=== PATIENT | female | born 1940 | race Asian ===

== ENCOUNTER 2016-10-13 12:19 | Emergency (ER) | payer OTHER ==
[~2016-10-13] VITALS: Ht 152.4 cm; Wt 52.2 kg
[2016-10-13] MEDS ORDERED: SODIUM CHLORIDE 0.9% 1,000 ML IV ONE (12:23)
[2016-10-13 13:06] LABS: Basophils # (auto) 0 uL; Basophils % (auto) 0.6 % (0.0-2.0); CONDITION Y; Eosinophils # (auto) 0.2 uL; Hematocrit 42.7 % (36.0-46.0); Hemoglobin 14.6 g/dL (12.2-16.2); Lymphocytes # (auto) 1.5 uL; Lymphocytes % (auto) 25.7 % (10.0-50.0); Mean Corpuscular Hemoglobin 30.6 pg (28.0-32.0); Mean Corpuscular Hgb Conc. 34.2 g/dL (32.0-36.0); Mean Corpuscular Volume 89.5 fL (80.0-100.0); Mean Platelet Volume 7.7 fL (7.4-10.4); Monocytes # (auto) 0.4 uL; Monocytes % (auto) 7.3 % (0.0-12.0); Neutrophils # (auto) 3.7 uL; Neutrophils % (auto) 62.4 % (37.0-80.0); Platelet Count (auto) 255 10^3/uL (140-450); Red Cell Distribution Width 12.9 % (11.6-16.0); White Blood Cell 5.9 10^3/uL (4.4-10.8)
[2016-10-13 13:29] LABS: B-Type Natriuretic Peptide 239.13 pg/mL (0-100); Temperature: 22.4 C (20.0-25.0)
[2016-10-13 13:37] LABS: INR 0.98 (0.9-1.15); Partial Thromboplastin Time 25.7 sec (22.64-33.71); Prothrombin Time 10.7 sec (9.37-12.3)
[2016-10-13 13:38] LABS: Albumin 3.3 g/dL (3.4-5.0); Alkaline Phosphatase 69 U/L (45-117); Anion Gap 10 (5-15); Aspartate Aminotransferase 19 U/L (15-37); Bilirubin, Total 0.5 mg/dL (0.2-1.0); Blood Urea Nitrogen 24 mg/dL (7-18); Calcium 8.7 mg/dL (8.5-10.1); Carbon Dioxide 25 mmol/L (21-32); Chloride 104 mmol/L (98-107); GFR African American 90 mL/min; GFR Non-African American 74 mL/min; Glucose 114 mg/dL (74-106); Sodium 139 mmol/L (136-145); Total Protein 7.8 g/dL (6.4-8.2)
[2016-10-13 14:23] LABS: Urine Bilirubin Negative (Negative); Urine Blood Negative /uL (Negative); Urine Color Yellow (Yellow); Urine Glucose Normal (Normal); Urine Ketone Negative (Negative); Urine RBC 2 /hpf (0 - 4); Urine Squamous Epithelial Cell FEW /hpf (<5); Urine Urobilinogen Normal (Negative); Urine pH 6.5 (5.0-8.0)
[2016-10-13 14:26] LABS: Urine Nitrite POSITIVE (Negative)
[2016-10-13] MEDS ORDERED: FUROSEMIDE 20 MG/2 ML VIAL IV ONE (14:30)
[2016-10-13] MEDS ORDERED: cefTRIAXone 1GM/50ML D5W 50 ML IV ONE (14:30)
[2016-10-13] MEDS ORDERED: cloNIDine HCL 0.1 MG TAB PO ONE (15:30)
[2016-10-13 16:40] VITALS: BP 118/70
== END 2016-10-13 16:41 | disposition home or self-care (01) ==
LOC: EDBD 12:19 → ER 12:24
DX: R55 Syncope and collapse (principal); E11.9 Type 2 diabetes mellitus without complications; R06.02 Shortness of breath
CPT/HCPCS: 36415; 70450; 71010; 80053; 81001; 83880; 84484; 85025; 85610; 85730; 96361; 96365; 96375; 99285; J0696; J1940; J7030

== ENCOUNTER 2017-04-01 23:00 | Emergency (ER) | payer OTHER ==
[~2017-04-01] VITALS: Ht 149.9 cm; Wt 52.2 kg
[2017-04-01] MEDS ORDERED: cloNIDine HCL 0.1 MG TAB ONE (23:06)
[2017-04-01] MEDS ORDERED: cloNIDine HCL 0.1 MG TAB PO ONE (23:30)
[2017-04-02 00:11] LABS: Basophils # (auto) 0.1 uL; Basophils % (auto) 1.3 % (0.0-2.0); Eosinophils # (auto) 0.2 uL; Eosinophils % (auto) 2.9 % (0.0-7.0); Hematocrit 41.9 % (36.0-46.0); Hemoglobin 14.1 g/dL (12.2-16.2); Lymphocytes # (auto) 1.3 uL; Lymphocytes % (auto) 23.1 % (10.0-50.0); Mean Corpuscular Hemoglobin 31.1 pg (28.0-32.0); Mean Corpuscular Hgb Conc. 33.6 g/dL (32.0-36.0); Mean Corpuscular Volume 92.4 fL (80.0-100.0); Monocytes # (auto) 0.5 uL; Monocytes % (auto) 9.7 % (0.0-12.0); Neutrophils # (auto) 3.4 uL; Nucleated Red Blood Cells % 0.1 %; Platelet Count (auto) 259 10^3/uL (140-450); Red Blood Cells 4.54 10^6/uL (4.0-5.20); Red Cell Distribution Width 13.3 % (11.8-14.3); White Blood Cell 5.5 10^3/uL (4.4-10.8)
[2017-04-02 00:25] LABS: Albumin 3.6 g/dL (3.4-5.0); Calcium 9.1 mg/dL (8.5-10.1); Potassium 3.8 mmol/L (3.5-5.1)
[2017-04-02 00:27] LABS: BUN/Creatinine Ratio 27.8
[2017-04-02 00:30] LABS: Bilirubin, Total 0.3 mg/dL (0.2-1.0); Total Protein 8.3 g/dL (6.4-8.2)
[2017-04-02] MEDS ORDERED: INDOMETHACIN 25 MG CAP PO ONE (07:15)
[2017-04-02 08:05] VITALS: BP 160/72
== END 2017-04-02 09:14 | disposition home or self-care (01) ==
LOC: ER 23:00
DX: M79.674 Pain in right toe(s) (principal); M25.50 Pain in unspecified joint; M10.9 Gout, unspecified; I10 Essential (primary) hypertension; E11.9 Type 2 diabetes mellitus without complications
CPT/HCPCS: 36415; 73660; 80053; 84550; 85025

== ENCOUNTER 2019-06-10 10:46 | Inpatient (IN) | payer OTHER ==
[~2019-06-10] VITALS: Ht 167.6 cm; Wt 52.6 kg
[2019-06-10] MEDS ORDERED: SODIUM CHLORIDE 0.9% 1,000 ML IV ONE (11:17)
[2019-06-10] MEDS ORDERED: ASPirin 81 mg TAB PO ONE ×2 (11:30→19:00)
[2019-06-10 11:42] LABS: Basophils # (auto) 0.1 10 ^3/uL (0-0.2); Basophils % (auto) 0.9 % (0.0-2.0); Eosinophils # (auto) 0.1 10 ^3/uL (0-0.8); Eosinophils % (auto) 1.9 % (0.0-7.0); Hematocrit 44.3 % (36.0-46.0); Lymphocytes # (auto) 1.1 10 ^3/uL (0.4-5.4); Lymphocytes % (auto) 18.4 % (10.0-50.0); Mean Corpuscular Hemoglobin 30.4 pg (28.0-32.0); Mean Corpuscular Hgb Conc. 33.9 g/dL (32.0-36.0); Mean Corpuscular Volume 89.6 fL (80.0-100.0); Monocytes # (auto) 0.4 10 ^3/uL (0-1.3); Monocytes % (auto) 7.4 % (0.0-12.0); Neutrophils # (auto) 4.2 10 ^3/uL (1.6-8.6); Neutrophils % (auto) 71.4 % (37.0-80.0); Platelet Count (auto) 197 10^3/uL (140-450); Red Blood Cells 4.94 10^6/uL (4.0-5.20); Red Cell Distribution Width 14.1 % (11.8-14.3); White Blood Cell 5.8 10^3/uL (4.4-10.8)
[2019-06-10 11:45] LABS: Urine Bacteria MOD /hpf (None Seen); Urine Blood Negative /uL (Negative); Urine Specific Gravity 1.006 (1.001-1.035); Urine WBC 132 /hpf (0 - 5)
[2019-06-10 11:58] LABS: INR 1.03 (0.9-1.15); Partial Thromboplastin Time 26.8 sec (23.64-32.05)
[2019-06-10] MEDS ORDERED: AMIODARONE HCL 900 MG in DEXTROSE 500 ML IV SCH (11:59)
[2019-06-10] MEDS ORDERED: AMIODARONE HCL 150 MG in D5W 5% 100 ML IV ONE (12:00)
[2019-06-10 12:03] LABS: Albumin 3.2 g/dL (3.4-5.0); Calcium 8.5 mg/dL (8.5-10.1); Potassium 3.6 mmol/L (3.5-5.1)
[2019-06-10 12:08] LABS: BUN/Creatinine Ratio 23.2; Bilirubin, Total 0.4 mg/dL (0.2-1.0); Total Protein 7.6 g/dL (6.4-8.2)
[2019-06-10] MEDS ORDERED: ENOXAPARIN SOD 80 MG/0.8ML SYRINGE SC ONE ×2 (12:30→21:59)
[2019-06-10] MEDS ORDERED: FUROSEMIDE 20 MG/2 ML VIAL IV ONE (12:45)
[2019-06-10] MEDS ORDERED: ONDANSETRON HCL 4 MG/2 ML VIAL IV PRN (13:15)
[2019-06-10] MEDS ORDERED: LACTULOSE 20Gm/30ML SOLN PO PRN (13:15)
[2019-06-10] MEDS ORDERED: TEMAZEPAM 15 MG CAP PO PRN (13:15)
[2019-06-10] MEDS ORDERED: traMADol HCL 50 MG TAB PO PRN (13:15)
[2019-06-10] MEDS ORDERED: METOPROLOL TARTRATE 25 MG TAB PO ONE (13:15)
[2019-06-10] MEDS ORDERED: MORPHINE SULF INJ 2 MG/ML SYRINGE 1ML IV PRN (13:15)
[2019-06-10] MEDS ORDERED: DEXTROSE (50%) 50ML SYRG IV PRN (13:15)
[2019-06-10] MEDS ORDERED: NITROGLYCERIN 0.4 MG SL TAB SL PRN (13:15)
[2019-06-10] MEDS ORDERED: cefTRIAXone 1GM/50ML D5W 50 ML IV ONE (14:45)
[2019-06-10] MEDS ORDERED: LISI-646 PO (16:46)
[2019-06-10] MEDS ORDERED: ALLO100T PO (16:51)
[2019-06-10] MEDS ORDERED: ASPI-404 PO (16:51)
[2019-06-10] MEDS ORDERED: ATEN50TA PO (16:54)
[2019-06-10] MEDS ORDERED: ISOS20TA56 PO (16:54)
[2019-06-10] MEDS ORDERED: METF-370 PO (16:54)
[2019-06-10] MEDS ORDERED: POTASSIUM CHL 20 Meq TABLET PO ONE (17:15)
[2019-06-10] MEDS: FAMOTIDINE 20 MG TAB PO SCH (17:28)
[2019-06-10] MEDS: ACCU-CHEK COMFORT CURVE STRIP VI SCH ×2 (17:28→22:13)
[2019-06-10] MEDS: InsuLIN REG 1unit/0.01ml Soln (100units/ml) SC SCH ×2 (17:30→22:11)
[2019-06-10] MEDS ORDERED: MAGNESIUM OXIDE 400 MG TAB PO ONE (18:45)
[2019-06-10] MEDS ORDERED: CLOPIDOGREL BISULFATE 75 MG TAB PO ONE (19:00)
[2019-06-10] MEDS ORDERED: CLOPIDOGREL 300 MG TAB PO ONE (19:15)
[2019-06-10] MEDS: MAGNESIUM SULFATE 1GM/100ML 100 ML IV SCH ×3 (19:15→21:26)
[2019-06-10] MEDS: ATORVASTATIN 20 MG TAB PO SCH (22:00)
[2019-06-10] MEDS: ENOXAPARIN SOD 80 MG/0.8ML SYRINGE SC SCH (22:13)
[2019-06-10] MEDS: METOPROLOL TARTRATE 25 MG TAB PO SCH (22:33)
[2019-06-11 06:33] LABS: Basophils # (auto) 0.1 10 ^3/uL (0-0.2); Basophils % (auto) 0.9 % (0.0-2.0); Eosinophils # (auto) 0.2 10 ^3/uL (0-0.8); Eosinophils % (auto) 3.2 % (0.0-7.0); Hemoglobin 15.7 g/dL (12.2-16.2); Lymphocytes # (auto) 1.5 10 ^3/uL (0.4-5.4); Lymphocytes % (auto) 23.2 % (10.0-50.0); Mean Corpuscular Hemoglobin 30.7 pg (28.0-32.0); Mean Corpuscular Hgb Conc. 34.2 g/dL (32.0-36.0); Mean Corpuscular Volume 89.6 fL (80.0-100.0); Monocytes # (auto) 0.4 10 ^3/uL (0-1.3); Monocytes % (auto) 6.6 % (0.0-12.0); Neutrophils # (auto) 4.3 10 ^3/uL (1.6-8.6); Neutrophils % (auto) 66.1 % (37.0-80.0); Nucleated Red Blood Cells % 0.1 %; Platelet Count (auto) 198 10^3/uL (140-450); Red Blood Cells 5.14 10^6/uL (4.0-5.20); Red Cell Distribution Width 13.8 % (11.8-14.3); White Blood Cell 6.6 10^3/uL (4.4-10.8)
[2019-06-11 06:51] LABS: Albumin 3.4 g/dL (3.4-5.0); Potassium 4.2 mmol/L (3.5-5.1)
[2019-06-11] MEDS: ACETAMINOPHEN 500 MG TAB PO PRN (06:51)
[2019-06-11 06:57] LABS: Bilirubin, Total 0.6 mg/dL (0.2-1.0)
[2019-06-11] MEDS: InsuLIN REG 1unit/0.01ml Soln (100units/ml) SC SCH ×4 (07:00→23:09)
[2019-06-11] MEDS: ACCU-CHEK COMFORT CURVE STRIP VI SCH ×4 (07:12→23:15)
[2019-06-11] MEDS: cefTRIAXone 1GM/50ML D5W 50 ML IV SCH (09:16)
[2019-06-11] MEDS ORDERED: VERAPAMIL 2.5MG/ML INJ 2ML VIAL IV ONE (09:38)
[2019-06-11] MEDS ORDERED: ATROPINE SULF 1 MG/10ml SYR ONE (09:38)
[2019-06-11] MEDS ORDERED: ANGIOMAX 250 MG VIAL IV ONE (09:38)
[2019-06-11] MEDS ORDERED: fentaNYL CITRATE 100 MCG/2 ML VL ONE (09:38)
[2019-06-11] MEDS ORDERED: SODIUM CHL 0.9% 50 ML ONE (09:39)
[2019-06-11] MEDS ORDERED: MIDAZOLAM HCL 1MG/1ML-2 ML VIAL ONE (09:39)
[2019-06-11] MEDS ORDERED: HEPARIN SODIUM (PORCINE) 5000 UNITS/ML 1ML VIAL ONE ×2 (09:42→11:23)
[2019-06-11] MEDS ORDERED: LIDOCAINE 2%HCL (LOCAL ANESTH.) INJ 20ML MDV ONE (09:54)
[2019-06-11] MEDS ORDERED: IODIXANOL 320MG/ML 100ML BTL IV ONE (09:54)
[2019-06-11] MEDS: FAMOTIDINE 20 MG TAB PO SCH (10:00)
[2019-06-11] MEDS ORDERED: ENALAPRIL MALEATE 2.5 MG TAB PO SCH (10:00)
[2019-06-11] MEDS ORDERED: ASPirin 81 mg TAB PO SCH (10:00)
[2019-06-11] MEDS: NITROGLYCERIN 0.2MG/HR TOPICAL PATCH TD SCH (10:00)
[2019-06-11] MEDS ORDERED: CLOPIDOGREL BISULFATE 75 MG TAB PO SCH (10:00)
[2019-06-11] MEDS: ENOXAPARIN SOD 80 MG/0.8ML SYRINGE SC SCH (10:00)
[2019-06-11] MEDS: METOPROLOL TARTRATE 25 MG TAB PO SCH ×2 (10:00→22:29)
[2019-06-11] MEDS ORDERED: HEPARIN DRIP/D5W 100UNITS/ML 250 ML IV ONE (11:23)
[2019-06-11 13:30] VITALS: BP 146/87
[2019-06-11] MEDS ORDERED: VANCOMYCIN 1GM/250ML 250 ML IV ONE ×2 (13:45)
[2019-06-11] MEDS ORDERED: ACCU-CHEK COMFORT CURVE STRIP VI ONE ×2 (13:45)
--- NOTE | 2019-06-11 13:45 | NUR ---
Telemetry admit from CHIEF RESERVOIR ENGINEERING JANESSA OWUSU admitted to Telemetry unit after SBAR received. Patient oriented to Chery Perez RN primary RN, unit, room, bed, and unit policies regarding patient care and visiting hours. Patient now on continuous telemetry monitoring, tele box #35 and telemetry reading on arrival to unit is sinus rhythm. Patient placed on bedside oxygen 2L nasal cannula. Patient is alert and oriented x2. Patient can state name and . At times she can state where she is. Otherwise, patient needs frequent re-orientation. 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 Per report patient has hematoma to right forearm. Capillary refill <3 seconds at this time. Patient not reporting any chest pain or generalized pain at this time. Will continue to monitor.
--- NOTE | 2019-06-11 13:50 | NUR ---
Chest Pain PER MD IBANEZ IF PATIENT HAS ANY CHEST PAIN, CONTACT HIM IMMEDIATELY. WILL RELAY TO NOC RN.
--- NOTE | 2019-06-11 14:14 | NUR ---
UNABLE TO OBTAIN [facility] PATIENT IS LETHARGIC AND UNABLE TO ANSWER QUESTIONS APPROPRIATELY FOR ADMISSION PROCESS, MOST INFORMATION WAS OBTAINED FROM MEDICAL RECORD. ATTEMPT MADE TO CALL PATIENTS KARINA AT [phone] AND [phone] WITH NO ANSWER. ALSO AN ATTEMPT WAS MADE TO CALL PATIENTS DAUGHTER SHYANNE AT [phone] WITH NO ANSWER.
--- NOTE | 2019-06-11 14:35 | NUR ---
VASC BAND Removed 2 ml of air. No bleeding noted. Capillary refill present at this time. Will continue to monitor.
--- NOTE | 2019-06-11 14:43 | NUR ---
Orders Per MD Ayala if patient continues to bleed after removing air from vasc band this nurse is to continue to hold heparin drip. If no bleeding occurs then resume with Heparin drip at 1715 per MD Ortiz orders. Per MD Ayala if patient continues to bleed, put in order for transfer to [facility]. Will continue to monitor. Addendum: 06/11/19 at 1627 by Chery Perez RN RN CORRECT TIME TO RESUME:[id number]
--- NOTE | 2019-06-11 15:00 | NUR ---
Left sided weakness Patient has been having intermittent left sided weakness. Patient has a weaker lead ruby on rails developer on the left than compared to the right. The patient at times can raise her left leg. Can raise right leg without difficulty. Pupils are equal and reactive to light, patient has symmetrical smile line at this time. Will update MD.
--- NOTE | 2019-06-11 15:30 | NUR ---
CT of Head Updated MD Ayala on patients condition. Received orders for Head CT. (SEE ORDERS)
--- NOTE | 2019-06-11 16:05 | NUR ---
Heparin Drip Heparin drip stopped at this time due to patient bleeding from radial site. aware. Per MD Ortiz this nurse is to put manual pressure on site if bleeding continues.
--- NOTE | 2019-06-11 16:08 | NUR ---
FAXED [facility] Spoke with Manny from [facility] Transfer center. Number [phone]. Provided Manny with patient information and request for transfer. Faxed patient information to [phone]. Provided Manny with [facility] nursing station number and he stated he would call if he needed more information. This nurse was not able to fax progress note on [facility] procedure because chart has not been updated. Will relay information
--- NOTE | 2019-06-11 16:48 | NUR ---
Weekend sanitation truck cleaner-I received a page from nurse Rivera letting me know that there is an order to transfer to [facility] for CABG (per family request). I provided nurse Nicole with phone number to [facility] Transfer Center [phone]. I let her know that they will be asking for Dr. Ortiz's contact information and may ask her to fax them information. I spoke with patient's daughter Daphney [phone] regarding the transfer order-that most likely it is not something that will happen overnight. I explained the process to her, that the doctors need to connect and there needs to be a bed available. Addendum: 06/11/19 at 1657 by Rachel Cheney RN Attempted to contact [facility] [phone]-[phone] to speak with a live person.
[2019-06-11 17:09] VITALS: BP 161/104
--- NOTE | 2019-06-11 17:50 | NUR ---
Spoke with Daughter Spoke with Daphney and updated her on POC. DAPHNEY [phone]
--- NOTE | 2019-06-11 18:30 | NUR ---
FAMILY AT BEDSIDE DAUGHTER AND FAMILY MEMBER AT BEDSIDE. PER MARCELLE NEWELLAY FOR PATIENT TO HAVE VISITORS.
--- NOTE | 2019-06-11 19:20 | NUR ---
ENDORSED CARE TO NOC RN Patient is resting in bed with eyes open. Respirations even and unlabored. 3x side rails up. Bed alarm on. Call light within reach.
[2019-06-11] MEDS ORDERED: LORazepam 2MG/ML-1ML VIAL IV PRN (19:30)
--- NOTE | 2019-06-11 19:30 | NUR ---
Opening shift note Assumed care of patient, awake, AAOx2 to self and time. On 2L oxygen via nasal cannula. No S/S of distress/SOB or pain. Awaiting transfer to ICU per dayshift RN. Instructed on POC and to call for assist PRN, will continue to monitor for changes Q1hr and PRN. Bed in lowest locked position, side rails up x2, call light within reach.
[2019-06-11] MEDS: AMIODARONE HCL 200 MG TAB PO SCH ×2 (20:26→22:29)
[2019-06-11] MEDS ORDERED: MUPIROCIN 2% OINT 15gm or 22gm TOP SCH ×2 (21:00)
[2019-06-11] MEDS: MUPIROCIN 2% OINT 15gm or 22gm TOP SCH (21:00)
--- NOTE | 2019-06-11 21:30 | NUR ---
Endorsed care to PLASTER MACHINE OPERATORROMERO Mack. Report given. Patient calm and resting in bed. No acute S/S of distress, SOB or pain. Patient transferred to ICU by Zulema JASSO and Lavinia JASSO.
--- NOTE | 2019-06-11 21:40 | NUR ---
[facility] to ICU via gurney on school bus monitor, and portable 02. Patient transfered to bed, connected to ICU monitoring and oxygen, and weighed by bedscale. Patient oriented to Connor Paul RN primary RN, unit, room, bed, and unit policies regarding patient care and visiting hours. All questions and concerns addressed, patient verbalized understanding.
--- NOTE | 2019-06-11 21:56 | NUR ---
INITIAL ASSESSMENT PATIENT AOX4. ALL QUESTIONS AND CONCERNS ADDRESSED AT THIS TIME. 2L NC STATING 100%, NO COMPLAINS OF SOB OR RESP DISTRESS. PATIENT DOES COMPLAIN OF PAIN 4/10 TO THE RIGHT SHOULDER. LARGE RIGHT FOREARM HEMATOMA RT TO S/P LHC, MD IBANEZ AWARE, RIGHT RADIAL PULSE WEAK, CAP REFILL >3SEC. LEFT UPPER EXTREMITY WEAKNESS. TO SR 78 ON BEDSIDE MONITOR WITH BLOOD PRESSURE OF 153/117. LEFT FA 22G PATENT AND CDI. PATIENT INSTRUCTED ON HOW TO USE CALL LIGHT FOR ASSISTANCE, PATIENT VERBALIZED UNDERSTANDING. PATIENT PLACED IN A POSITION OF COMFORT. ALL FALL AND SAFETY PRECAUTIONS IN PLACE.
--- NOTE | 2019-06-11 22:10 | NUR ---
Tried to call daughter Daphney to inform of transfer, number was not going through.
[2019-06-11] MEDS: ATORVASTATIN 20 MG TAB PO SCH (22:29)
[2019-06-11] MEDS: SOD CHL 0.45% 1,000 ML IV SCH (22:29)
--- NOTE | 2019-06-11 23:16 | NUR ---
ELEVATED BP BP 185/104, INFORMED MD BRYANT. ORDER FOR 10MG HYDRALAZINE IV PUSH
[2019-06-11] MEDS ORDERED: hydrALAZINE HCL 20 MG/ML VL ONE (23:19)
--- NOTE | 2019-06-11 23:28 | NUR ---
FAMILY CALLED UPDATED ON PATIENT STATUS. ALL QUESTIONS ADDRESSED AT THIS TIME.
[2019-06-11 23:30] VITALS: BP 128/61
[2019-06-11] MEDS ORDERED: hydrALAZINE HCL 20 MG/ML VL IV ONE (23:30)
[2019-06-11] MEDS ORDERED: hydrALAZINE HCL 20 MG/ML VL IV PRN (23:45)
[2019-06-12] VITALS (35 sets, daily range): BP systolic 103–164; BP diastolic 55–127
--- NOTE | 2019-06-12 00:23 | NUR ---
BELINDA IBANEZ PATIENT NOW COMPLAINING OF RIGHT SHOULDER PAIN 12/30, MARCELLE COMMUNICATION ORDER TO PAGE IF PATIENT IS HAVING CHEST PAIN. AWAITING CALL BACK.
--- NOTE | 2019-06-12 00:27 | NUR ---
RETURNED CALL MD IBANEZ UPDATED PATIENT ON STATUS, RIGHT SHOULDER PAIN AND HEMATOMA TO RIGHT FOREARM. NO ORDERS RECEIVED.
[2019-06-12] MEDS ORDERED: HYDROcodone-ACET 5/325MG TAB PO PRN (00:30)
[2019-06-12] MEDS: SOD CHL 0.45% 1,000 ML IV SCH ×2 (01:20→10:59)
[2019-06-12] MEDS ORDERED: CHLORHEXIDINE 4% TOPICAL soln 118ml TOP ONE ×3 (02:00)
[2019-06-12 04:24] LABS: Basophils # (auto) 0 10 ^3/uL (0-0.2); Basophils % (auto) 0.3 % (0.0-2.0); Eosinophils # (auto) 0 10 ^3/uL (0-0.8); Eosinophils % (auto) 0.2 % (0.0-7.0); Hematocrit 33.1 % (36.0-46.0); Hemoglobin 11.2 g/dL (12.2-16.2); Lymphocytes # (auto) 0.6 10 ^3/uL (0.4-5.4); Lymphocytes % (auto) 10.4 % (10.0-50.0); Mean Corpuscular Hemoglobin 30.8 pg (28.0-32.0); Mean Corpuscular Hgb Conc. 33.7 g/dL (32.0-36.0); Mean Corpuscular Volume 91.4 fL (80.0-100.0); Monocytes # (auto) 0.2 10 ^3/uL (0-1.3); Neutrophils % (auto) 86.1 % (37.0-80.0); Nucleated Red Blood Cells % 0.1 %; Platelet Count (auto) 153 10^3/uL (140-450); Red Blood Cells 3.63 10^6/uL (4.0-5.20); Red Cell Distribution Width 13.9 % (11.8-14.3); White Blood Cell 5.8 10^3/uL (4.4-10.8)
[2019-06-12 04:48] LABS: BUN/Creatinine Ratio 42.5; Magnesium 1.5 mg/dL (1.6-2.6)
--- NOTE | 2019-06-12 05:10 | NUR ---
LOW LAB VALUE UPDATED MD BRYANT ON K 3.0, ORDERS RECEIVED.
[2019-06-12 05:13] LABS: Calcium 5.2 mg/dL (8.5-10.1)
[2019-06-12] MEDS ORDERED: POTASSIUM CHL 20MEQ/100ML 100 ML IV ONE (05:15)
[2019-06-12] MEDS ORDERED: POTASSIUM EFFERVESENT TAB 25 MEQ PO ONE (05:15)
[2019-06-12] MEDS ORDERED: CHLORHEXIDINE 0.12% ORAL rinse 473ML MT ONE ×3 (06:00→13:45)
[2019-06-12] MEDS: MUPIROCIN 2% OINT 15gm or 22gm TOP SCH ×2 (06:29→21:00)
[2019-06-12] MEDS: InsuLIN REG 1unit/0.01ml Soln (100units/ml) SC SCH ×4 (06:29→22:00)
[2019-06-12] MEDS ORDERED: CALCIUM GLUC 4.65meq/50ml D5AE 50 ML IV ONE (06:45)
--- NOTE | 2019-06-12 06:45 | NUR ---
LOW CALCIUM LEVEL UPDATED MD BRYANT ON CALCIUM AND ALBUMIN LEVEL. ORDERS RECEIVED.
[2019-06-12] MEDS: ACCU-CHEK COMFORT CURVE STRIP VI SCH ×4 (06:58→22:15)
[2019-06-12] MEDS ORDERED: VANCOMYCIN 1GM/250ML 250 ML IV ONE (07:00)
[2019-06-12] MEDS ORDERED: ACCU-CHEK COMFORT CURVE STRIP VI ONE (08:00)
--- NOTE | 2019-06-12 08:11 | NUR ---
[facility] TRANSFER CENTER: Spoke with Miriam from [facility], inquires on whether the patient is consenting for surgery and for transfer. Informed Miriam that as of now the patient has not been assessed and the information about patient is from report. Contact information obtained, will call Miriam back after assessment.
--- NOTE | 2019-06-12 08:30 | NUR ---
AT BEDSIDE: Dr. Ortiz at bedside, assessed patient. Order received to re-start patient on Heparin drip at 600 U/hr and then per protocol.
--- NOTE | 2019-06-12 08:42 | NUR ---
RETURN CALL TO [facility] TRANSFER CENTER: Call placed to Miriam at [facility], informed her that the patient is oriented and will consent to transfer as well as surgery. Miriam states that she will contact the surgeon and call back with further instructions.
[2019-06-12] MEDS: cefTRIAXone 1GM/50ML D5W 50 ML IV SCH (09:02)
--- NOTE | 2019-06-12 09:15 | NUR ---
BMX RIDER: bio medical technician at bedside.
--- NOTE | 2019-06-12 10:06 | NUR ---
EEG- UNABLE TO COMPLETE ELECTROENCEPHALOGRAM DUE TO PATIENT BEING RESTLESS CAUSING TOO MANY ARTIFACTS.
[2019-06-12] MEDS ORDERED: LISINOPRIL 20 MG TAB PO ONE (10:45)
[2019-06-12] MEDS: HEPARIN DRIP/D5W 100UNITS/ML 250 ML IV SCH (10:55)
[2019-06-12] MEDS: AMIODARONE HCL 200 MG TAB PO SCH ×2 (10:57→22:05)
[2019-06-12] MEDS: METOPROLOL TARTRATE 25 MG TAB PO SCH ×2 (10:58→22:06)
[2019-06-12] MEDS: FAMOTIDINE 20 MG TAB PO SCH (10:58)
[2019-06-12] MEDS: NITROGLYCERIN 0.2MG/HR TOPICAL PATCH TD SCH (10:59)
--- NOTE | 2019-06-12 11:15 | NUR ---
COMPLETE LINEN CHANGE: Patient incontinent of urine, complete linen change provided. Hair brushed, clean warm blankets provided to patient.
[2019-06-12] MEDS: MAGNESIUM SULFATE 1GM/100ML 100 ML IV SCH ×2 (12:00→13:00)
--- NOTE | 2019-06-12 14:45 | NUR ---
CT TRANSPORT; Patient transported to CT on portable monitor and portable O2.
--- NOTE | 2019-06-12 14:53 | NUR ---
RETURN FROM CT: Patient returned from CT, connected to bedside monitor. Tolerated procedure well.
--- NOTE | 2019-06-12 15:50 | NUR ---
RADIOLOGY REPORT: Received phone call from online radiologist regarding critical CT results. Dr. Wiggins paged and notified of results.
--- NOTE | 2019-06-12 16:06 | NUR ---
[facility] TRANSFER CENTER UPDATED; Call placed to [facility] transfer lily dale, spoke with Miriam. Informed Miriam that patient had a change in clinical status, readback CT head report, copy faxed as per request.
--- NOTE | 2019-06-12 16:24 | NUR ---
RETURN CALL FROM [facility] TRANSFER CENTER: Spoke with Miriam from [facility], states that cardiothoracic surgeon has declined transfer stating patient is not a surgical candidate.
--- NOTE | 2019-06-12 17:20 | NUR ---
FAMILY UPDATE; Updated patient's daughter on transfer situation, informed her that neurology and cardiology will be asked to call and speak with her regarding POC from this point.
--- NOTE | 2019-06-12 19:10 | NUR ---
OPENING NOTE PATIENT AOX4. ALL QUESTIONS AND CONCERNS ADDRESSED AT THIS TIME. 2L NC STATING >95%, NO COMPLAINS OF SOB OR RESP DISTRESS. NO COMPLAINTS OF PAIN. LARGE RIGHT FOREARM HEMATOMA, MD IBANEZ AWARE, RIGHT RADIAL PULSE WEAK. LEFT SIDED WEAKNESS. SR 60'S ON BEDSIDE MONITOR WITH BLOOD PRESSURE OF 145/97. LEFT FA 22G PATENT AND CDI. PATIENT INSTRUCTED ON HOW TO USE CALL LIGHT FOR ASSISTANCE, PATIENT VERBALIZED UNDERSTANDING. PATIENT PLACED IN A POSITION OF COMFORT. ALL FALL AND SAFETY PRECAUTIONS IN PLACE.
[2019-06-12 19:21] LABS: INR 1.01 (0.9-1.15); Partial Thromboplastin Time 46.1 sec (23.64-32.05)
[2019-06-12] MEDS: ATORVASTATIN 20 MG TAB PO SCH (22:06)
[2019-06-12] MEDS: LISINOPRIL 20 MG TAB PO SCH (22:06)
--- NOTE | 2019-06-12 22:48 | NUR ---
HEPARIN DRIP INCREASED FOR PHARMACY PROTOCOL PTT 46.1
--- NOTE | 2019-06-12 23:00 | NUR ---
COMPLETE BED BATH GIVEN PATIENT HAD A LARGE BLADDER INCONTINENCE EPISODE. COMPLETE BED SHEET AND GOWN CHANGED. PATIENT PLACED ON PINK PADDED, [facility]ADE, MEDICAL CHAIR WITH MAXIMUM ASSISTANCE. ONCE SEATED THE PATIENT WAS VERY WEAK AND UNABLE TO SIT UP INDEPENDENTLY. PATIENT WAS SUPPORTED WITH MULTIPLE PILLOWS FOR COMFORT. VITAL SIGN STABLE.
[2019-06-13] VITALS (43 sets, daily range): BP systolic 90–167; BP diastolic 49–121
[2019-06-13] MEDS: SOD CHL 0.45% 1,000 ML IV SCH (02:30)
[2019-06-13 04:20] LABS: Calcium 8.5 mg/dL (8.5-10.1); Magnesium 2.6 mg/dL (1.6-2.6); Potassium 4.3 mmol/L (3.5-5.1)
[2019-06-13 04:29] LABS: INR 1.07 (0.9-1.15)
[2019-06-13 04:30] LABS: Partial Thromboplastin Time 79.2 sec (23.64-32.05)
--- NOTE | 2019-06-13 04:30 | NUR ---
HEPARIN DRIP DECREASED FOR PHARMACY PROTOCOL
--- NOTE | 2019-06-13 05:10 | NUR ---
VOID PATIENT HAD AN INCONTINENT VOID. CLEANED, NEW SHEETS PLACED.
[2019-06-13] MEDS: MUPIROCIN 2% OINT 15gm or 22gm TOP SCH (07:00)
[2019-06-13] MEDS: ACCU-CHEK COMFORT CURVE STRIP VI SCH ×4 (07:00→22:00)
[2019-06-13] MEDS: InsuLIN REG 1unit/0.01ml Soln (100units/ml) SC SCH ×4 (07:00→22:00)
--- NOTE | 2019-06-13 08:00 | NUR ---
COOLING MEASURES INITIATED
--- NOTE | 2019-06-13 08:30 | NUR ---
PT IS ALERT AND ORIENTED X4 ABLE TO VERBALIZE AND FOLLOW COMMANDS. LEFT SIDED EXTREMITIES ARE WEAK BUT PT IS ABLE TO APPLY RESISTANCE AND HOLD UP FOR A FEW MINUTES. PT ALSO EXHIBITS WITH SENSATION TO BOTH SIDES BILATERALLY. RIGHT ARM IS PAINFUL TO TOUCH DUE TO CHRONIC SHOULDER INJURY BUT IS AGGRAVATED BY HEMATOMA AND ECCHYMOSIS TO LEFT HEART CATH SITE ON WRIST. SITE IS CLEAN DRY INTACT. PULSES PALPABLE TO ALL EXTREMITIES BILATERALLY. WILL NOTIFY PHYSICIAN OF FINDINGS. WILL CONTINUE TO MONITOR
[2019-06-13] MEDS: HEPARIN DRIP/D5W 100UNITS/ML 250 ML IV SCH (08:43)
--- NOTE | 2019-06-13 09:20 | NUR ---
PT TRANSFERRED TO CT WITH MARC JASSO AND ZENAIDA AT BEDSIDE
--- NOTE | 2019-06-13 09:35 | NUR ---
PT RETURNED FROM CT. NO S/S OF DISTRESS.
--- NOTE | 2019-06-13 09:40 | NUR ---
DR. IBANEZ AT BEDSIDE AND IS SPEAKING WITH PT'S DAUGHTER REGARDING PLAN OF CARE. DAUGHTER STATES SHE WOULD LIKE ANY TX AND INTERVENTIONS DONE AT [facility]. DR. IBANEZ STATES THAT IS OK AND WE WILL BE IN TOUCH WITH CASE MANAGEMENT. ORDERS RECEIVED
[2019-06-13] MEDS: METOPROLOL TARTRATE 25 MG TAB PO SCH ×2 (10:00→22:00)
[2019-06-13] MEDS: LISINOPRIL 20 MG TAB PO SCH ×2 (10:00→22:00)
[2019-06-13] MEDS: AMIODARONE HCL 200 MG TAB PO SCH ×2 (10:00→22:00)
--- NOTE | 2019-06-13 10:30 | NUR ---
DR. IBANEZ PAGED REGARDING DECREASED HEART RATE AND MEDICATIONS
--- NOTE | 2019-06-13 10:35 | NUR ---
CALL FROM NIKKI WITH CASE MANAGEMENT. SHE HAS SPOKEN WITH DAUGHTER AND THEY WILL BE TRYING TO CONTACT [facility]
--- NOTE | 2019-06-13 10:40 | NUR ---
PT WAS ABLE TO SWALLOW AND TOLERATE PO MEDICATION WITHOUT COMPLICATIONS.
--- NOTE | 2019-06-13 10:40 | NUR ---
DR. IBANEZ IS OK WITH HOLDING MEDICATIONS BUT STATES TO ADMINISTER NITROGLYCERIN PATCH.
[2019-06-13] MEDS: cefTRIAXone 1GM/50ML D5W 50 ML IV SCH (10:49)
[2019-06-13] MEDS: FAMOTIDINE 20 MG TAB PO SCH (10:51)
[2019-06-13] MEDS: NITROGLYCERIN 0.2MG/HR TOPICAL PATCH TD SCH (10:57)
--- NOTE | 2019-06-13 11:00 | NUR ---
PTT 59.2. NO CHANGES TO HEPARIN AT THIS TIME PER PROTOCOL.
--- NOTE | 2019-06-13 11:20 | NUR ---
DR. LUNDBERG AT BEDSIDE ORDERS RECEIVED
[2019-06-13 11:21] LABS: INR 1.07 (0.9-1.15); Partial Thromboplastin Time 59.2 sec (23.64-32.05)
[2019-06-13] MEDS: SODIUM CHLORIDE 0.9% 1,000 ML IV SCH ×2 (12:00→21:26)
--- NOTE | 2019-06-13 12:30 | NUR ---
ORTHOPEDIC PHYSICIAN AT BEDSIDE
--- NOTE | 2019-06-13 14:00 | NUR ---
SPEECH THERAPIST AT BEDSIDE TO PERFORM SWALLOW EVAL
--- NOTE | 2019-06-13 14:04 | NUR ---
SWALLOW EVALUATED. PATIENT HAS DENTURES. ABLE TO FOLLOW DIRECTIONS. PATIENT ABLE TO TOLERATE PUREE DIET TEXTURE WITH THIN LIQUIDS WITH NO OVERT SIGNS OR SYMPTOMS OF ASPIRATION. NURSING NOTIFIED.
--- NOTE | 2019-06-13 15:00 | NUR ---
KENO WRITER / RUNNER AT BEDSIDE
--- NOTE | 2019-06-13 15:10 | NUR ---
SPOKE WITH DR IBANEZ REGARDING TRANSFER TO [facility]. STATES OK TO TRANSFER TO TELE UNIT. WILL SPEAK TO DR. LUNDBERG WELL.
--- NOTE | 2019-06-13 15:35 | NUR ---
I called [facility] Transfer Center [phone] and spoke with Jovanny, he said they have an accepting MD, he said that per Dr. Ortiz patient can go to telemetry at [facility]-he will call me back with a bed assignment when financial clearance is complete. I called [employer] Equipment Repairer Cira Voss [phone] and left message letting her know that patient is requiring higher level of care transfer and that [facility] is accepting.
--- NOTE | 2019-06-13 15:38 | NUR ---
assessment Patient is a 79 year old female in ICU. Per patients daughter Daphney prior to admission patient lived home with family and was completely independent. Daphney is aware of patients order to transfer to higher level of care. Daphney agrees to transfer. Per Daphney prior to admission patient had no need for DME. Patients PCP is Dr Resendiz. Patient has no advanced directive or POA. Rachel continuous pillowcase cutter is working on transfer. Daphney verbalized understanding and agreed to transfer. Addendum: 06/13/19 at 1541 by Mariela STOCK Amended: Links added.
--- NOTE | 2019-06-13 15:40 | NUR ---
SPOKE WITH DR. LUNDBERG STATES OK TO TRANSFER TO TELE UNIT AT [facility] USING CRITICAL CARE TRANSPORT
--- NOTE | 2019-06-13 15:45 | NUR ---
I called [facility] ([phone])-spoke with Stephanie-placed patient on will-call pending transfer to [facility].
--- NOTE | 2019-06-13 15:50 | NUR ---
EEG: ELECTROENCEPHALOGRAM COMPLETED ON 06/13/2019.
--- NOTE | 2019-06-13 16:00 | NUR ---
ROOM AND ACCEPTING PHYSICIAN AT [facility] SPOKE WITH JAY FROM [facility] [phone]. ACCEPTING PHYSICIAN DR. STERLING Addendum: 06/13/19 at 2049 by NATASHA SCHWARZ RN RN ROOM 31
--- NOTE | 2019-06-13 17:00 | NUR ---
PTT 67.8 NO CHANGES TO HEPARIN PER PROTOCOL
[2019-06-13 18:18] LABS: INR 1.08 (0.9-1.15); Partial Thromboplastin Time 67.8 sec (23.64-32.05)
--- NOTE | 2019-06-13 18:50 | NUR ---
ISIAH WITH [facility] CALLED TO UPDATE REGARDING MECHANICAL EXPERT TIME. STATES COULD POSSIBLY BE AROUND 2300 TO MIDNIGHT FOR ARRIVAL.
--- NOTE | 2019-06-13 19:00 | NUR ---
CLOSING NOTE SHIFT REPORT GIVEN AND CARE ENDORSED TO MIKE JASSO
--- NOTE | 2019-06-13 19:00 | NUR ---
OPENING NOTE ASSUMED CARE OF PATIENT AT THIS TIME. REPORT RECEIVED FROM DAY SHIFT RN. POC REVIEWED. HEAD TO TOE ASSESSMENT COMPLETE, SEE INTERVENTION SPREADSHEET FOR COMPLETE DETAILS. RECEIVED PT ALERT, RESTLESS, FOLLOWS COMMANDS, ABLE TO ANSWER QUESTIONS APPROPRIATELY. IV SITE BENIGN. PT ON HEPARIN GTT AT 600 UNITS. CALL LIGHT WITHIN REACH. VSS. BED LOCKED AND IN LOWEST POSITION, SAFETY PRECAUTIONS MAINTAINED. WILL MONITOR PT CAREFULLY.
--- NOTE | 2019-06-13 19:37 | NUR ---
PT PLACED ON BEDPAN. PT VOIDED CLEAR YELLOW URINE.
--- NOTE | 2019-06-13 20:10 | NUR ---
FAMILY UPDATE SPOKE WITH DAUGHTER SHYANNE. FAMILY AWARE OF IMPENDING PT TRANSFER DEPENDENT ON ACLS RN AVAILABILITY. WILL NOTIFY FAMILY WHEN ETA IS ESTABLISHED.
--- NOTE | 2019-06-13 20:37 | NUR ---
BELONGINGS SHYANNE CALLED AND INFORMED THIS RN THAT PT CAME IN TO ER WITH BLACK STENCIL CUTTER MACHINE JENSEN WITH PT ID AND PASSPORT. SHYANNE WAS INFORMED BY TUBE MOLDER FIBERGLASS THAT PT DID NOT HAVE PURSE ON TELE FLOOR. BOGDAN FORD SUP MADE AWARE. NO PT BELONGINGS AT BEDSIDE IN ICU ROOM 111 AT THIS TIME.
[2019-06-13] MEDS: ACETAMINOPHEN 500 MG TAB PO PRN (21:02)
[2019-06-13] MEDS: ATORVASTATIN 20 MG TAB PO SCH (22:00)
--- NOTE | 2019-06-13 22:48 | NUR ---
MESSAGE LEFT WITH DAUGHTER, JIN VINNY [phone].
--- NOTE | 2019-06-13 23:25 | NUR ---
REPORT GIVEN TO JIN JASSO
[2019-06-14 00:03] LABS: INR 1.07 (0.9-1.15); Partial Thromboplastin Time 65.1 sec (23.64-32.05)
--- NOTE | 2019-06-14 00:10 | NUR ---
CALLED DAUGHTER TO LET HER KNOW PT HAS LEFT WITH [facility] TRANSPORT AT THIS TIME.
--- NOTE | 2019-06-14 00:10 | NUR ---
REPORT GIVEN TO JER JASSO AT [phone].
--- NOTE | 2019-06-14 00:48 | NUR ---
BELONGINGS SPOKE WITH DAUGHTER AGAIN. CONCERN FOR PT BELONGINGS. PT CAME IN WITH CLOTHING, NOT AT BEDSIDE. UNABLE TO TRACK DOWN PURSE. DAUGHTER WILL FOLLOW UP LATER.
== END 2019-06-14 00:03 | disposition short-term general hospital (02) | DRG 280 ==
LOC: EDBD 10:46 → ER 10:46 → TELE 10:47 → TELE-CENTR 06-11 13:40 → ICU WEST 06-11 21:36
PROVIDERS: ADMIT Internal Medicine; ATTEND Internal Medicine
PROC: 4A023N7 Measurement of Cardiac Sampling and Pressure, Left Heart, Percutaneous Approach (ICD-10-PCS; principal; 2019-06-11)
PROC: B2111ZZ Fluoroscopy of Multiple Coronary Arteries using Low Osmolar Contrast (ICD-10-PCS; 2019-06-11)
PROC: B2151ZZ Fluoroscopy of Left Heart using Low Osmolar Contrast (ICD-10-PCS; 2019-06-11)
DX: I21.4 Non-ST elevation (NSTEMI) myocardial infarction (principal); I50.33 Acute on chronic diastolic (congestive) heart failure; I63.411 Cerebral infarction due to embolism of right middle cerebral artery; I16.1 Hypertensive emergency; M25.011 Hemarthrosis, right shoulder; G81.94 Hemiplegia, unspecified affecting left nondominant side; E11.9 Type 2 diabetes mellitus without complications; M10.9 Gout, unspecified; I25.10 Atherosclerotic heart disease of native coronary artery without angina pectoris; E87.6 Hypokalemia; I95.9 Hypotension, unspecified; E83.51 Hypocalcemia; E83.42 Hypomagnesemia; M75.101 Unspecified rotator cuff tear or rupture of right shoulder, not specified as traumatic; I48.91 Unspecified atrial fibrillation; E78.5 Hyperlipidemia, unspecified; F17.200 Nicotine dependence, unspecified, uncomplicated; I11.0 Hypertensive heart disease with heart failure; I25.2 Old myocardial infarction; Z83.3 Family history of diabetes mellitus; Z79.82 Long term (current) use of aspirin; Z86.73 Personal history of transient ischemic attack (TIA), and cerebral infarction without residual deficits; Z90.710 Acquired absence of both cervix and uterus; Z79.01 Long term (current) use of anticoagulants; A49.02 Methicillin resistant Staphylococcus aureus infection, unspecified site
CPT/HCPCS: 36415; 70450; 71045; 73200; 80048; 80053; 80061; 81001; 82040; 82550; 82962; 83036; 83735; 83880; 84443; 84484; 85025; 85576; 85610; 85730; 87086; 92610; 93005; 93306; 93886; 93930; 93970; 93971; 95819; 96374; 96375; 97163; 99152; G0378; J0610; J0696; J1815; J2250; J3480; J7060; Q9967